=== PATIENT | male | born 1990 | race Caucasian/White ===

== ENCOUNTER 2016-05-04 16:09 | Emergency (ER) | payer OTHER ==
--- NOTE | 2016-05-04 17:51 | ED CLINICAL REPORT ---
Clinical Report - Physicians/Mid Levels [facility] [address] [place] [address] 05/04/2016 16:12 Patient: MARVIN MCKOY Time Seen: 1720; initial patient contact, initial documentation, patient care assumed. Arrived- By private vehicle. Historian- patient. HISTORY OF PRESENT ILLNESS Chief Complaint: COUGH, FEVER, CHILLS, MUSCLE ACHES and "FLU". 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 The illness is described as moderate. The patient has had a cough, nasal congestion, fever, chills and muscle aches. He has had a nasal discharge. No sore throat, sinus pressure or ear pain. Additional history - The patient has had contact with a sick coworker. Similar symptoms previously: None. Recent medical care: Not recently seen/assessed. REVIEW OF SYSTEMS No nausea, vomiting or diarrhea. All systems otherwise negative, except as recorded above. PAST HISTORY Negative. SOCIAL HISTORY Light tobacco smoker. Occasional alcohol use. Not exposed to second-hand smoke at home. No drug use. No recent travel. Is a local resident. FAMILY HISTORY Negative. ADDITIONAL NOTES The nursing notes have been reviewed with agreement regarding the chief complaint, HPI, ROS, PMH and patient medications and allergies. PHYSICAL EXAM Vital Signs: 05/04/2016 16:24 BP: 123/77. HR: 103. RR: 18. O2 saturation: 96%. Temp: 98.9 F. Pain level now: 3/10. Have been reviewed as normal and appear to be correct. Appearance: Alert. No acute distress. Eyes: Pupils equal, round and reactive to light. Eyes normal inspection. ENT: Ears normal. Nose normal. Pharynx normal. Uvula midline. Neck: Normal inspection. Neck supple. CVS: Normal heart rate and rhythm. Heart sounds normal. Pulses normal. Respiratory: No respiratory distress. Breath sounds normal. Abdomen: Soft and nontender. No organomegaly. Back: Normal inspection. Skin: Skin warm and dry. Normal skin color. No rash. Normal skin turgor. Extremities: Extremities exhibit normal ROM. No lower extremity edema. Neuro: Oriented X 3. No motor deficit. No sensory deficit. LABS, X-RAYS, AND EKG Laboratory Tests: Rapid Influenza Screen: (SOCO: 05/04/2016 16:40) ( MsgRcvd 05/04/2016 17:09) Final results SPECIMEN DESCRIPTION: NASAL PHARYNGEAL MUCUS Test Result Flag Units (Reference) RAPID INFLUENZA SCREEN CALLED TO: KATT -- DATE: 05/04/16 INFLUENZA A: POSITIVE SCREEN FOR INFLUENZA A INFLUENZA B: NEGATIVE SCREEN FOR INFLUENZA B . PROGRESS AND PROCEDURES Patient counseled in person regarding the patient's stable condition, test results and diagnosis. 17:50. Differential Diagnosis: Other possible considerations: flu, viral illness, uri, sinusitis, bronchitis, pneumonia. Above considerations are based on history, physical exam and laboratory data. Differential diagnosis was discussed with patient. Disposition: Discharged home in good and improved condition (17:50). Condition: good and stable. CLINICAL IMPRESSION Acute viral rhinitis. No airway obstruction. Influenza type A. INSTRUCTIONS Warnings: GENERAL WARNINGS: Return or contact your physician immediately if your condition worsens or changes unexpectedly, if not improving as expected, or if other problems arise. Specifically return if problem worsens. Follow-up: Follow up with your doctor in about five days as needed. Call for an appointment. Summary of care provided to patient. Understanding of the discharge instructions verbalized by patient. (Electronically signed by Megan Leos A.R.N.P. 05/04/2016 19:01)
--- NOTE | 2016-05-04 17:51 | ED ORDER SUMMARY ---
..... Patient: MARVIN MCKOY OrderSheet [facility] VisitID: [id number] [place] [address] 26y, M Registration Date/Time: 05/04/2016 ORDER SHEET Weight: 77.1 kg (stated) Allergies: No Known Drug Allergy GENERAL ORDERS: Rapid Influenza Screen (Nasal Pharyngeal) (nasal pharyngeal mucus) Urgent (16:47 05/04/2016 Kiana R.N. verbal order read back to Mary A.R.N.P.) (16:47 Kiana R.N.) MEDICATION ORDERS: IV FLUIDS: ORDER SHEET NOTES: [Electronically signed by Megan Leos A.R.N.PMaxwell (19:01 05/04/2016)] [Electronically signed by Whitney Srinivasan R.N. (16:14 05/05/2016)] [Electronically locked/signed by Whitney Srinivasan R.N. (16:14 05/05/2016)]
--- NOTE | 2016-05-04 17:51 | ED NURSING NOTES ---
Clinical Report - Nurses [facility] [address] [address] 05/04/2016 16:12 [id number] Triage time 16:26. Acuity: LEVEL 4. Chief Complaint: FEVER, COUGH and BODY ACHES. --16:29 Whitney Srinivasan R.N. 16:24 05/04/16. BP: 123/77 (regular adult cuff) taken on the left arm, while sitting. HR: 103. RR: 18. O2 saturation: 96%. Temp: 98.9 F. Pain level now: 07/08. --16:29 Whitney Srinivasan R.N. 16:42 05/04/16. Temp: 100.4 F (oral). --16:43 Freddie Cohen R.N. Weight: 77.1 kg stated. Height/Length: 67 inches Per Patient. BMI: 26.6. --16:29 Whitney Srinivasan R.N. Medications None. --16:27 Whitney Srinivasan R.N. Allergies No Known Drug Allergy. --16:26 Whitney Srinivasan R.N. History Arrived by private vehicle. Historian: patient. Accompanied by family. Primary physician (None). Onset. (3 days). He has had chest congestion, chills, fatigue and a headache. ( coughing). Treatment BAKERY TEAM LEADER: (Nyquil). PAST MEDICAL HX: ( testicular CA, treated with radiation therapy in 2010). SOCIAL HX: Current every day heavy tobacco smoker- less than 1 pack per day. Occasional alcohol use. No drug use. No recent travel. 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 No infectious disease exposure. --16:29 Whitney Srinivasan R.N. Interventions ID band on patient. To waiting room. --16:29 Whitney Srinivasan R.N. DISPOSITION / DISCHARGE Departure time: 1815. Condition at departure: unchanged and stable. Discharge instructions provided and reviewed with the patient. Reviewed warnings. Patient verbalized understanding. Written instructions provided in German. The patient was discharged home and accompanied by spouse. He left the Emergency Department ambulatory and via private vehicle. Spouse driving. --18:16 Whitney Srinivasan R.N. 18:15 05/04/16. BP: 109/66. HR: 100. RR: 22. O2 saturation: 99%. Temp: 98.8 F. Pain level now: 07/08. --18:16 Whitney Srinivasan R.N. Locked/Released at 05/05/2016 16:14 by Whitney Srinivasan R.N.
--- NOTE | 2016-05-04 17:51 | ED ORDER SUMMARY ---
..... Patient: MARVIN MCKOY OrderSheet [facility] VisitID: [id number] [place] [address] 26y, M Registration Date/Time: 05/04/2016 ORDER SHEET Weight: 77.1 kg (stated) Allergies: No Known Drug Allergy GENERAL ORDERS: Rapid Influenza Screen (Nasal Pharyngeal) (nasal pharyngeal mucus) Urgent (16:47 05/04/2016 Kiana R.N. verbal order read back to Mary A.R.N.P.) (16:47 Kiana R.N.) MEDICATION ORDERS: IV FLUIDS: ORDER SHEET NOTES: [Electronically signed by Megan Leos A.R.N.PMaxwell (19:01 05/04/2016)] [Electronically signed by Whitney Srinivasan R.N. (16:14 05/05/2016)] [Electronically locked/signed by Whitney Srinivasan R.N. (16:14 05/05/2016)]
--- NOTE | 2016-05-04 17:51 | ED NURSING NOTES ---
Clinical Report - Nurses [facility] [place] [address] 05/04/2016 16:12 [id number] Triage time 16:26. Acuity: LEVEL 4. Chief Complaint: FEVER, COUGH and BODY ACHES. --16:29 Whitney Srinivasan R.N. 16:24 05/04/16. BP: 123/77 (regular adult cuff) taken on the left arm, while sitting. HR: 103. RR: 18. O2 saturation: 96%. Temp: 98.9 F. Pain level now: 07/08. --16:29 Whitney Srinivasan R.N. 16:42 05/04/16. Temp: 100.4 F (oral). --16:43 Freddie Cohen R.N. Weight: 77.1 kg stated. Height/Length: 67 inches Per Patient. BMI: 26.6. --16:29 Whitney Srinivasan R.N. Medications None. --16:27 Whitney Srinivasan R.N. Allergies No Known Drug Allergy. --16:26 Whitney Srinivasan R.N. History Arrived by private vehicle. Historian: patient. Accompanied by family. Primary physician (None). Onset. (3 days). He has had chest congestion, chills, fatigue and a headache. ( coughing). Treatment SPORTS MEDICINE TRAINER: (Nyquil). PAST MEDICAL HX: ( testicular CA, treated with radiation therapy in 2010). SOCIAL HX: Current every day heavy tobacco smoker- less than 1 pack per day. Occasional alcohol use. No drug use. No recent travel. 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 No infectious disease exposure. --16:29 Whitney Srinivasan R.N. Interventions ID band on patient. To waiting room. --16:29 Whitney Srinivasan R.N. DISPOSITION / DISCHARGE Departure time: 1815. Condition at departure: unchanged and stable. Discharge instructions provided and reviewed with the patient. Reviewed warnings. Patient verbalized understanding. Written instructions provided in Slovak. The patient was discharged home and accompanied by spouse. He left the Emergency Department ambulatory and via private vehicle. Spouse driving. --18:16 Whitney Srinivasan R.N. 18:15 05/04/16. BP: 109/66. HR: 100. RR: 22. O2 saturation: 99%. Temp: 98.8 F. Pain level now: 07/08. --18:16 Whitney Srinivasan R.N. Locked/Released at 05/05/2016 16:14 by Whitney Srinivasan R.N.
--- NOTE | 2016-05-04 17:51 | ED CLINICAL REPORT ---
Clinical Report - Physicians/Mid Levels [facility] [address] [place] [address] 05/04/2016 16:12 Patient: MARVIN MCKOY Time Seen: 1720; initial patient contact, initial documentation, patient care assumed. Arrived- By private vehicle. Historian- patient. HISTORY OF PRESENT ILLNESS Chief Complaint: COUGH, FEVER, CHILLS, MUSCLE ACHES and "FLU". 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 The patient has had a cough, nasal congestion, fever, chills and muscle aches. He has had a nasal discharge. No sore throat, sinus pressure or ear pain. Additional history - The patient has had contact with a sick coworker. Similar symptoms previously: None. Recent medical care: Not recently seen/assessed. REVIEW OF SYSTEMS No nausea, vomiting or diarrhea. All systems otherwise negative, except as recorded above. PAST HISTORY Negative. SOCIAL HISTORY Light tobacco smoker. Occasional alcohol use. Not exposed to second-hand smoke at home. No drug use. No recent travel. Is a local resident. FAMILY HISTORY Negative. ADDITIONAL NOTES The nursing notes have been reviewed with agreement regarding the chief complaint, HPI, ROS, PMH and patient medications and allergies. PHYSICAL EXAM Vital Signs: 05/04/2016 16:24 BP: 123/77. HR: 103. RR: 18. O2 saturation: 96%. Temp: 98.9 F. Pain level now: 3/10. Have been reviewed as normal and appear to be correct. Appearance: Alert. No acute distress. Eyes: Pupils equal, round and reactive to light. Eyes normal inspection. ENT: Ears normal. Nose normal. Pharynx normal. Uvula midline. Neck: Normal inspection. Neck supple. CVS: Normal heart rate and rhythm. Heart sounds normal. Pulses normal. Respiratory: No respiratory distress. Breath sounds normal. Abdomen: Soft and nontender. No organomegaly. Back: Normal inspection. Skin: Skin warm and dry. Normal skin color. No rash. Normal skin turgor. Extremities: Extremities exhibit normal ROM. No lower extremity edema. Neuro: Oriented X 3. No motor deficit. No sensory deficit. LABS, X-RAYS, AND EKG Laboratory Tests: Rapid Influenza Screen: (SOCO: 05/04/2016 16:40) ( MsgRcvd 05/04/2016 17:09) Final results SPECIMEN DESCRIPTION: NASAL PHARYNGEAL MUCUS Test Result Flag Units (Reference) RAPID INFLUENZA SCREEN CALLED TO: KATT -- DATE: 05/04/16 INFLUENZA A: POSITIVE SCREEN FOR INFLUENZA A INFLUENZA B: NEGATIVE SCREEN FOR INFLUENZA B . PROGRESS AND PROCEDURES Patient counseled in person regarding the patient's stable condition, test results and diagnosis. 17:50. Differential Diagnosis: Other possible considerations: flu, viral illness, uri, sinusitis, bronchitis, pneumonia. Above considerations are based on history, physical exam and laboratory data. Differential diagnosis was discussed with patient. Disposition: Discharged home in good and improved condition (17:50). Condition: good and stable. CLINICAL IMPRESSION Acute viral rhinitis. No airway obstruction. Influenza type A. INSTRUCTIONS Warnings: GENERAL WARNINGS: Return or contact your physician immediately if your condition worsens or changes unexpectedly, if not improving as expected, or if other problems arise. Specifically return if problem worsens. Follow-up: Follow up with your doctor in about five days as needed. Call for an appointment. Summary of care provided to patient. Understanding of the discharge instructions verbalized by patient. (Electronically signed by Megan Leos A.R.N.P. 05/04/2016 19:01)
--- NOTE | 2016-05-05 16:15 | ED MAR SUMMARY ---
..... Medication Administration Record [facility] [address] [place], [place] [id number] Patient: MARVIN MCKOY Visit ID: [id number] 26y, M Weight: 77.1 kg Height/Length: 67 in BMI: 26.6 ALLERGIES: No Known Drug Allergy
--- NOTE | 2016-05-05 16:15 | ED MAR SUMMARY ---
..... Medication Administration Record [facility] [address] [place], [place] [id number] Patient: MARVIN MCKOY Visit ID: [id number] 26y, M Weight: 77.1 kg Height/Length: 67 in BMI: 26.6 ALLERGIES: No Known Drug Allergy
--- NOTE | 2016-05-05 16:15 | ED MED RECONCILIATION SUMMARY ---
Patient: DAVION MCKOYS Zachariah Medication Reconciliation Report [facility] VisitID: [id number] [address] [place] [address] 26y, M Registration Date/Time: 05/04/2016 Weight: 77.1 kg Height/Length: 67 in. BMI: 26.6 ALLERGIES: No Known Drug Allergy The patient's Home Medications are listed below: NONE. The source(s) of the original Home Medication information: Not obtained. The following Medications were given to the patient in the Emergency Department: None. The following Medications were prescribed to the patient: None.
--- NOTE | 2016-05-05 16:15 | ED MED RECONCILIATION SUMMARY ---
Patient: DAVION MCKOYS Zachariah Medication Reconciliation Report [facility] VisitID: [id number] [address] [place] [address] 26y, M Registration Date/Time: 05/04/2016 Weight: 77.1 kg Height/Length: 67 in. BMI: 26.6 ALLERGIES: No Known Drug Allergy The patient's Home Medications are listed below: NONE. The source(s) of the original Home Medication information: Not obtained. The following Medications were given to the patient in the Emergency Department: None. The following Medications were prescribed to the patient: None.
--- NOTE | 2016-05-05 16:15 | ED DISCHARGE INSTRUCTIONS ---
Patient: MARVIN MCKOY General Instructions [facility] VisitID: [id number] [place] [address] 26y, M Registration Date/Time: 05/04/2016 Acute viral rhinitis. No airway obstruction. Influenza type A. INSTRUCTIONS Warnings: GENERAL WARNINGS: Return or contact your physician immediately if your condition worsens or changes unexpectedly, if not improving as expected, or if other problems arise. Specifically return if problem worsens. Follow-up: Follow up with your doctor in about five days as needed. Call for an appointment. Summary of care provided to patient. Understanding of the discharge instructions verbalized by patient. ADDITIONAL INFORMATION Viral Respiratory Illness [Adult] You have an Upper Respiratory Illness (URI) caused by a virus. This illness is contagious during the first few days. It is spread through the air by coughing and sneezing or by direct contact (touching the sick person and then touching your own eyes, nose or mouth). Most viral illnesses go away within 7-10 days with rest and simple home remedies. Sometimes, the illness may last for several weeks. Antibiotics will not kill a virus and are generally not prescribed for this condition. Home Care: 1) If symptoms are severe, rest at home for the first 2-3 days. When you resume activity, don't let yourself get too tired. 2) Avoid being exposed to cigarette smoke (yours or others). 3) Tylenol (acetaminophen) or ibuprofen (Advil, Motrin) will help fever, muscle aching and headache. (Persons under 18 with fever should not take aspirin since this may cause liver damage.) 4) Your appetite may be poor, so a light diet is fine. Avoid dehydration by drinking 6-8 glasses of fluids per day (water, soft drinks, juices, tea, soup). Extra fluids will help loosen secretions in the nose and lungs. 5) Nwpf-[id number] cold medicines will not shorten the length of time youre sick, but they may be helpful for the following symptoms: cough (Robitussin DM); sore throat (Chloraseptic lozenges or spray); nasal and sinus congestion (Actifed, Sudafed, Chlortrimeton). Follow Up with your doctor or as advised if you dont improve over the next week. Get Prompt Medical Attention if any of the following occur: -- Cough with lots of colored sputum (mucus) or blood in your sputum -- Chest pain, shortness of breath, wheezing or have trouble breathing -- Severe headache; face, neck or ear pain -- Fever over 100.4 F (38.0 C) for more than three days -- You cant swallow due to throat pain Influenza (Adult) Influenza, also called the flu, is a viral illness that affects the air passages of the lungs. It differs from the common cold. It is highly contagious. It may be spread through the air by coughing and sneezing or by direct contact (touching the sick person and then touching your own eyes, nose or mouth). Illness starts 1-3 days after exposure and lasts for 1-2 weeks. Antibiotics are usually not needed unless a complication appears (ear or sinus infection or pneumonia). Symptoms may be mild or severe and can include extreme tiredness (wanting to stay in bed all day), chills, fevers, muscle aching, soreness with eye movement, headache, and a dry, hacking cough. Home Care: Avoid exposure to cigarette smoke (yours or others). Tylenol or ibuprofen (Advil) will help fever, muscle aching, and headache. To avoid risk of liver injury, aspirin should not be used in children and teenagers under 18 with this illness. Nausea and loss of appetite are common. A light diet is recommended. Avoid dehydration by drinking 6-8 glasses of fluids per day (water, sport drinks like Gatorade, soft drinks without caffeine, juices, tea, soup, etc.). Extra fluids will also help loosen secretions in the nose and lungs. Vsnq-dhl-zabowix cold medicines will not shorten the duration of the illness but may be helpful for the following symptoms: cough (Robitussin DM); sore throat (Chloraseptic lozenges or spray); nasal and sinus congestion (Actifed or Sudafed). [NOTE: Do not use decongestants if you have high blood pressure.] Stay home until your fever has been gone for at least 24 hours (without the use of fever-reducing medications such as ibuprofen). Follow Up with your doctor or as directed by our staff if you are not improving over the next week. Note: If you are age 65 or older, or if you have chronic asthma or COPD, we recommend a pneumococcal vaccinationevery five years. All adults shouldreceive a yearly influenza vaccination every . Ask your doctor about this. Get Prompt Medical Attention if any of the following occur: Cough with lots of colored sputum (mucus) or blood in your sputum Chest pain, shortness of breath, wheezing, or difficulty breathing Severe headache, face, neck or ear pain New rash Fever of 100.4F (38C) oral or higher, not better with fever medication Confusion, behavior change or seizure Severe weakness or dizziness You have been given the following additional information: Uri, Viral, No Abx (Adult) Influenza (Adult) (Electronically signed by Megan Leos A.R.N.P. 05/04/2016 19:01)
== END 2016-05-04 18:17 | disposition home or self-care (01) ==
LOC: ED SRH 16:09
DX: J10.1 Influenza due to other identified influenza virus with other respiratory manifestations (principal); F17.210 Nicotine dependence, cigarettes, uncomplicated
CPT/HCPCS: 91400